=== PATIENT | female | born 1990 | race Caucasian/White ===

== ENCOUNTER 2021-07-29 04:58 | Emergency (ER) | payer BC, SELFPAY ==
[2021-07-29] VITALS (8 sets, daily range): BP systolic 119–145; BP diastolic 63–86; PULSE 67–96; RESP 16; TEMP 36.8–37.2; O2SAT 90–99; BMI 26.3; BMI 25.3
--- NOTE | 2021-07-29 05:03 | CT_ITS ---
PROCEDURE INFORMATION: Exam: CT Maxillofacial Without Contrast, Sinus Exam date and time: 07/29/2021 5:27 AM Age: 30 years old Clinical indication: Other: Congestion; Additional info: Sinus pop TECHNIQUE: Imaging protocol: CT Maxillofacial without contrast. Focus on the sinuses. Radiation optimization: All CT scans at this facility use at least one of these dose optimization techniques: automated exposure control; mA and/or kV adjustment per patient size (includes targeted exams where dose is matched to clinical indication); or iterative reconstruction. COMPARISON: No relevant prior studies available. FINDINGS: Frontal sinuses: Normal. No air-fluid levels. Ethmoid air cells: This is also seen in the sphenoid and ethmoid sinuses. Sphenoid sinuses: Normal. No air-fluid levels. Maxillary sinuses: Bilateral right greater than left mucoperiosteal thickening of the maxillary sinuses is noted. Nasal cavity/Septum: Unremarkable. Orbital cavities: Orbits are normal. Globes are unremarkable. Bones/joints: Unremarkable. Soft tissues: Unremarkable. IMPRESSION: Pansinusitis. No air fluid levels noted however.
--- NOTE | 2021-07-29 05:03 | XR_ITS ---
PROCEDURE INFORMATION: Exam: XR Chest Exam date and time: 07/29/2021 5:18 AM Age: 30 years old Clinical indication: Other: Congestion TECHNIQUE: Imaging protocol: XR of the chest. Views: 2 views. COMPARISON: No relevant prior studies available. FINDINGS: Lungs: Unremarkable. No consolidation. Pleural spaces: Unremarkable. No pleural effusion. No pneumothorax. Heart/Mediastinum: Unremarkable. No cardiomegaly. Bones/joints: Unremarkable. IMPRESSION: No acute findings.
--- NOTE | 2021-07-29 05:12 | ECG_ITS ---
APPROVED REPORT Exam: Resting ECG HR:76 bpm ECG Measurements Heart Rate 76 AXES IN 134 P 72 QRSd 93 QRS 97 QT 359 T 78 QTc 389 Conclusion SINUS RHYTHM BORDERLINE RIGHT AXIS DEVIATION [QRS AXIS > 90] BORDERLINE ECG UNCONFIRMED REPORT Electronically signed by : Trevor Nichols MD 07/31/2021 10:33:14
[2021-07-29 05:38] LABS: Adenovirus,PCR Not Detected (NotDetected); Bordetella Pertussis Not Detected (NotDetected); Chlamydophila Pneumoniae, PCR Not Detected (NotDetected); Coronavirus 19, PCR Not Detected (NotDetected); Coronavirus 229E Not Detected (NotDetected); Coronavirus NL63 Not Detected (NotDetected); Coronavirus OC43 Not Detected (NotDetected); Coronovirus HKU1,PCR Not Detected (NotDetected); Human Metapneumovirus Not Detected (NotDetected); Influenza A, PCR Not Detected (NotDetected); Influenza AH1, 2009 Not Detected (NotDetected); Influenza AH1, PCR Not Detected (NotDetected); Influenza AH3,PCR Not Detected (NotDetected); Influenza B, PCR Not Detected (NotDetected); Microscopic, Urine URINE MICROSCOPIC (MICROSCOPIC); Mycoplasma Pneumoniae, PCR Not Detected (NotDetected); Parainfluenza 1, PCR Not Detected (NotDetected); Parainfluenza 2, PCR Not Detected (NotDetected); Parainfluenza 3, PCR Not Detected (NotDetected); Parainfluenza 4, PCR Not Detected (NotDetected); Respiratory Syncytial Virus Not Detected (NotDetected); Rhinovirus/Enterovirus Not Detected (NotDetected)
--- NOTE | 2021-07-29 05:41 | PC.NURSE ---
PO CHALLENGE INITIATED.
[2021-07-29 05:44] LABS: Appearance,Urine CLEAR (Clear); Bilirubin,Urine Negative (Negative); Blood, Urine 2+ (Negative); Color,Urine YELLOW (Yellow); Glucose,Urine (UA) Negative (Negative); Ketones,Urine Negative (Negative); Leukocyte Esterase,Urine Negative (Negative); Nitrate,Urine Negative (Negative); Protein,Urine Negative (Negative); Specific Gravity, Urine 1.015 (1.005-1.030)
[2021-07-29 05:54] LABS: Urine Pregnancy, HCG Qual. Negative (Negative)
[2021-07-29 06:00] LABS: Amphetamine/Metha Screen,Urine Negative ng/ml (<1000)
[2021-07-29 06:01] LABS: Barbiturates Screen,Urine Negative ng/ml (<200)
[2021-07-29 06:02] LABS: Benzodiazepines Screen,Urine Negative ng/ml (<200); Cannabinoid Screen,Urine Negative ng/ml (<50)
[2021-07-29 06:03] LABS: Cocaine Screen,Urine Negative ng/ml (<300)
[2021-07-29 06:04] LABS: Methadone Screen,Urine Negative ng/ml (<300); Opiate Screen,Urine Positive ng/ml (<300)
[2021-07-29 06:05] LABS: Phencyclidine Screen,Urine Negative ng/ml (<25)
[2021-07-29 06:06] LABS: Strep Scrn Group A (Rapid) Negative (Negative)
[2021-07-29 06:13] LABS: Bacteria,Urine 4+ /lpf; WBC,Urine Occasional #/hpf (0-3)
[2021-07-29 06:34] LABS: Basophils # 0.1 K/mm3 (0-0.2); Basophils % 0.9 % (0.1-2.0); Eosinophils % 0.4 % (0.1-12.0); Hematocrit 36.9 % (37.0-47.0); Hemoglobin 12.6 g/dL (12.2-16.2); Lymphocytes # 0.8 K/mm3 (0.7-4.5); Lymphocytes % 8.9 % (10-50); Mean Corpuscular HGB Conc 34.1 g/dL (31.8-35.4); Mean Corpuscular Hemoglobin 31.7 pg (27.0-31.2); Mean Corpuscular Volume 92.9 fl (81-99); Mean Platelet Volume 8.1 fl (7.4-10.4); Monocytes # 0.4 K/mm3 (0.1-1.0); Monocytes % 4.5 % (1.7-9.3); Neutrophils # 7.9 K/mm3 (1.8-7.8); Neutrophils % 85.3 % (37.0-80.0); Platelet Count 263 K/mm3 (142-424); Red Blood Count 3.97 M/mm3 (4.20-5.40); Red Cell Distribution Width 12.7 % (11.5-17.5); White Blood Count 9.2 K/mm3 (4.8-10.8)
[2021-07-29 06:36] LABS: MANUAL DIFFERENTIAL MANUAL DIFFERENTIAL (MANUAL DIFF)
[2021-07-29 06:39] LABS: Alanine Aminotransferase 15 U/L (12-78); Albumin/Globulin Ratio 1.3 (1.1-1.8); Alkaline Phosphatase 69 U/L (38-126); Anion Gap 10.7 mEq/L (5-15); Aspartate Amino Transferase 26 U/L (14-36); Blood Urea Nitrogen 6 mg/dl (7-17); Calcium 8.9 mg/dl (8.4-10.2); Carbon Dioxide 31 mmol/L (22.0-30.0); Chloride 99 mmol/L (98-107); Creatinine Clearance Estimated 187 mL/min (50-200); Estimated Glomerular Filt Rate 143 ml/min (>60); GFR (African American) 173 ML/MIN (>60); Glucose 129 mg/dl (74-100); Potassium 3.7 mmoL/L (3.5-5.1); Sodium 137 mmol/L (136-145)
[2021-07-29 06:44] LABS: Bilirubin,Total < 0.1 mg/dl (0.2-1.3); C-Reactive Protein 38.3 mg/L (0-4)
--- NOTE | 2021-07-29 06:51 | INFXCTL.NOTE ---
Pt updated on POC. No new needs.
--- NOTE | 2021-07-29 06:51 | PC.NURSE ---
Pt updated on POC. No new needs.
[2021-07-29 06:58] LABS: Procalcitonin 0.107 ng/mL (0.0-2.0)
[2021-07-29 06:59] LABS: Erythrocyte Sedimentation Rate 58 mm/hr (0-20)
--- NOTE | 2021-07-29 07:00 | HMH.EDURI ---
ED Disposition Clinical Impression: Sinusitis Qualifiers: Sinusitis location: pansinusitis Chronicity: acute Recurrence: not specified as recurrent Qualified Code(s): J01.40 - Acute pansinusitis, unspecified Disposition: Home, Self-Care Condition on Discharge: Good Instructions: DI for Sinusitis Additional Instructions: use meds and see pcp for follow up Prescriptions: Cefdinir [Omnicef 300mg Capsule] 300 mg PO BID #14 cap Cefdinir [Omnicef 300mg Capsule] 300 mg PO BID #14 cap Transmission Status: Pending to [id number] predniSONE [Prednisone 20mg Tab] 20 mg PO BID #10 tab predniSONE [Prednisone 20mg Tab] 20 mg PO BID #10 tab Transmission Status: Pending to [id number] Referrals: Olivia Thompson MD [Primary Care Provider] - - Critical Care Critical Care Time: No Attestation: On 07/29/21, the high probability of a clinically significant, sudden or life threatening deterioration of the following system(s) required my full and direct attention, intervention and personal management. The time I documented below is in addition to time spent performing reported procedures but includes the following listed in this critical care notation. Medical Decision Making - Medical Records Medical records reviewed: Yes: I reviewed the patient's medical records. - Carlos Inquiry Pt receiving controlled substance: No Vital Signs: 07/29/21 04:53 07/29/21 05:01 07/29/21 06:00 Temperature 99.0 F Temperature Source Oral Pulse Rate 91 H 70 Pulse Rate [Left Radial] 87 Respiratory Rate 16 Blood Pressure 145/86 H 126/74 Blood Pressure [Right Arm] 145/63 H Blood Pressure Mean [Right Arm] 90 Blood Pressure Source [Right Arm] Automatic Cuff Blood Pressure Position [Right Arm] Sitting 02 Sat by Pulse Oximetry 99 92 L 94 L Oxygen Delivery Method Room Air Room Air Room Air 07/29/21 06:24 07/29/21 06:39 Temperature 98.5 F Temperature Source Oral Pulse Rate 78 79 Pulse Rate [Left Radial] Respiratory Rate Blood Pressure 134/74 Blood Pressure [Right Arm] Blood Pressure Mean [Right Arm] Blood Pressure Source [Right Arm] Blood Pressure Position [Right Arm] 02 Sat by Pulse Oximetry 90 L Oxygen Delivery Method Room Air - Lab Data Lab results reviewed: Yes: I reviewed the patient's lab results. Lab Results 07/29/21 05:02: Urine Color Yellow, Urine Appearance Clear, Urine pH 7.0, Ur Specific Baldwin 1.015, Urine Protein Negative, Urine Glucose (UA) Negative, Urine Ketones Negative, Urine Blood 2+, Urine Nitrate Negative, Urine Bilirubin Negative, Urine Urobilinogen 1.0, Ur Leukocyte Esterase Negative, Urine RBC 10-20, Urine WBC Occasional, Ur Squamous Epith Cells 5-10, Urine Bacteria 4+ 07/29/21 05:02: Urine HCG, Qual Negative 07/29/21 05:02: Group A Strep Rapid Negative 07/29/21 05:02: Urine Opiates Screen Positive H, Urine Methadone Screen Negative, Ur Barbituates Screen Negative, Ur Phencyclidine Scrn Negative, Ur Amphetamines Screen Negative, U Benzodiazepines Scrn Negative, Urine Cocaine Screen Negative, U Marijuana (THC) Screen Negative 07/29/21 06:20: WBC 9.2, RBC 3.97 L, Hgb 12.6, Hct 36.9 L, MCV 92.9, MCH 31.7 H, MCHC 34.1, RDW 12.7, Plt Count 263, MPV 8.1, Neut % (Auto) 85.3 H, Lymph % (Auto) 8.9 L, [place] % (Auto) 4.5, Eos % (Auto) 0.4, Baso % (Auto) 0.9, Neut # (Auto) 7.9 H, Lymph # (Auto) 0.8, [place] # (Auto) 0.4, Eos # (Auto) 0.0, Baso # (Auto) 0.1, ESR 58 H 07/29/21 06:20: Sodium 137, Potassium 3.7, Chloride 99, Carbon Dioxide 31 H, Anion Gap 10.7, BUN 6 L, Creatinine 0.50 L, Estimated Creat Clear 187, Estimated GFR 143, Est GFR ( Amer) 173, Glucose 129 H, Calcium 8.9, Total Bilirubin < 0.1 L, AST 26, ALT 15, Alkaline Phosphatase 69, C-Reactive Protein 38.3 H, Total Protein 7.0, Albumin 4.0, Globulin 3.0, Albumin/Globulin Ratio 1.3, Procalcitonin 0.107 Result diagrams: 07/29/21 06:07/29/21 06:20 Orders (Tests/Meds): ED MEDICATIONS Generic
[2021-07-29 07:06] LABS: Eosinophils % 1 % (0-3); Lymphocytes % 11 % (10-50); Monocytes % 3 % (2-9); Neutrophils % 85 % (42-76); Total Cells Counted 100
[2021-07-29 07:07] LABS: Platelet Estimate Normal; RBC Morphology Normal
== END 2021-07-29 07:50 | disposition home or self-care (01) ==
PROVIDERS: Emergency Provider Emergency Medicine; PCP Family Medicine
DX: J01.40 Acute pansinusitis, unspecified (principal); Z72.0 Tobacco use
CPT/HCPCS: 70486; 71046; 80053; 80305; 81001; 81025; 84145; 85007; 85025; 85651; 86140; 87086; 87430; 87581; 87632; 87798; 93005; 96360; 96375; 99284; C9803; U0003; U0005

== ENCOUNTER 2022-01-04 10:35 | Emergency (ER) | payer BC, SELFPAY ==
[2022-01-04 11:50] VITALS: BP 130/91; PULSE 80; RESP 20; TEMP 37.1; O2SAT 96; BMI 28.1
--- NOTE | 2022-01-04 12:02 | EXP.UTC ---
Discharge Plan Disposition Patient Disposition: Home, Self-Care Condition: Good Prescriptions Prescriptions: New azithromycin [Zithromax] 250 mg tablet 250 mg PO UD DOSE PK Qty: 6 0RF Rx Instructions: Take two (2) tablets today, then one (1) tablet days #2 thru #5 methylprednisolone 4 mg Tablets,Dose Pack 4 mg PO DIRECTED Qty: 21 0RF ywrqtiebjdxklwg-jmhpqgztx-SU [Bromfed DM] 2-30-10 mg/5 mL Syrup 5 ml PO Q6H PRN (Reason: Cough) Qty: 240 0RF No Action mefenamic acid 250 mg capsule 250 mg PO Q6H amitriptyline 10 MG tablet 1 tab PO BID Label Comments: TAKE 1 TABLET AT BEDTIME ORALLY ONCE A DAY 90 DAY(S) Referrals Follow up/Referrals: Olivia Thompson MD [Primary Care Provider] - See instructions Activity Restrictions/Add. Instructions Additional Instructions/Restrictions: Drink plenty of fluids. Take tylenol or ibuprofen for pain or fever. Take the medications as directed. Follow up with your regular doctor. GO TO THE ER FOR ANY WORSENING SYMPTOMS Clinical Impressions Clinical Impression: Acute bronchitis Instructions Patient Instructions: DI for Acute Bronchitis Discharge ED Provider: [facility] General Stated complaint: Cough,Headache Time Seen by Provider: 01/04/22 12:02 History of Present Illness Provider Complaint: She states that for the past 2 days she has had cough, chest congestion, scratchy sore throat and malaise. Related Data Home Medications Medication Instructions Recorded Confirmed amitriptyline 10 mg tablet 1 tab PO BID MIGRAINES 07/29/21 12/18/21 mefenamic acid 250 mg capsule 250 mg PO Q6H 12/18/21 12/18/21 Previous Rx's Medication Instructions Recorded azithromycin 250 mg tablet 250 mg PO UD DOSE PK #6 tabs 01/04/22 (Zithromax) mejywgcbvjoafki-dqaulyqvpzjeeid-EV 5 ml PO Q6H PRN Cough #240 mL 01/04/22 2 mg-30 mg-10 mg/5 mL oral syrup (Bromfed DM) methylprednisolone 4 mg tablets in 4 mg PO DIRECTED #21 tabs 01/04/22 a dose pack Allergies Allergy/AdvReac Type Severity Reaction Status Date / Time No Known Allergies Allergy Verified 12/18/21 10:51 [facility] Medical History Migraine Surgical History History of tubal ligation S/P dilation and curettage Social History Smoking Status: Current every day smoker tobacco type: cigarettes packs per day: 1 alcohol intake: never current occupational status: other Travel in the last 8 weeks: None ROS Obtained: Yes All systems reviewed & no additional complaints except as documented Constitutional Constitutional: Reports chills and Denies fever(s) Eyes Eyes: Denies eye discharge ENT Ears, Nose, Mouth, and Throat: Reports as per HPI Cardiovascular Cardiovascular: Denies chest pain Respiratory Respiratory: Denies as per HPI, Reports chest congestion, Reports cough, Reports stridor and Reports wheezing Gastrointestinal Gastrointestingal: Reports nausea; Denies abdominal pain, constipation, cramping, diarrhea or vomiting Musculoskeletal Musculoskeletal: Denies arthralgias Integumentary/Breasts Skin/Breast: Denies rash Neurologic Neurologic: Denies paresthesias Allergic/Immunologic Allergic/Immunologic: Reports wheezing Physical Exam General General appearance: alert and in no apparent distress Head Head exam: atraumatic, normocephalic and normal inspection Eye Eye exam: Present normal appearance, PERRL and EOMI ENT ENT exam: Present normal exam, normal oropharynx, mucous membranes moist, TM's normal bilaterally and normal external ear exam Neck Neck exam: Present normal inspection, full ROM and trachea midline; Absent meningismus or lymphadenopathy Chest Chest inspection: Present normal inspection and symmetric chest wall rise; Absent tenderness Respiratory Respiratory exam:
[2022-01-04 12:21] VITALS: BP 130/91; PULSE 80; RESP 20; TEMP 37.1; O2SAT 96
== END 2022-01-04 12:24 | disposition home or self-care (01) ==
PROVIDERS: Emergency Provider Nurse Practitioner Family; PCP Family Medicine
DX: J20.9 Acute bronchitis, unspecified (principal)
CPT/HCPCS: 99212; G0463

== ENCOUNTER → 2022-04-05 15:42 | Outpatient (CLI) | payer BC, SELFPAY ==
--- NOTE | 2022-04-05 15:47 | XR_ITS ---
FINAL REPORT CLINICAL HISTORY: KNEE PAIN after stretching Tuesday night. tubal ligation. shielded. FINDINGS: 3 views of the right knee were obtained. There is no acute fracture or dislocation. The joint spaces are intact. There is no soft tissue abnormality. IMPRESSION: No acute process. Reviewed, Interpreted and Dictated by Coy Louise III, MD Transcribed by Janes Hernandez Authenticated and . [facility]
== END ==
PROVIDERS: PCP Nurse Practitioner Family; Visit Provider Nurse Practitioner Family
DX: M25.561 Pain in right knee (principal)
CPT/HCPCS: 73562

== ENCOUNTER → 2022-05-20 10:27 | Outpatient (CLI) | payer BC, SELFPAY ==
--- NOTE | 2022-05-20 10:30 | MR_ITS ---
FINAL REPORT CLINICAL HISTORY: .LOW BACK PAIN WITH RIGHT SIDED LEG PAIN, NUMBNESS AND TINGLING. NO INJURY OR TRAUMA COMPARISON: none FINDINGS: Multiplanar MR imaging of the lumbar spine was performed without contrast. On the sagittal T2-weighted images, disc degeneration is seen at L4-5 and L5-S1. There is mild retrolisthesis of L4 on L5 and L5 on S1. There is no evidence of fracture. No bony mass is identified. The conus has an unremarkable appearance. T12-L1: No significant canal stenosis or neural foraminal narrowing. L1-2: There is no significant canal stenosis or neural foraminal narrowing. L2-3: There is no significant canal stenosis or neural foraminal narrowing. L3-4: An annular bulge is present. Mild bilateral neural foraminal narrowing. L4-5: An annular bulge is present. Left paracentral annular tear and small disc protrusion. Moderate bilateral neural foraminal narrowing. Mild central canal stenosis with AP diameter of the thecal sac of 8 mm. L5-S1: An annular bulge is present. Right paracentral disc protrusion. Right S1 nerve root impingement. Severe right and moderate left neural foraminal narrowing. IMPRESSION: Left paracentral annular tear and small disc protrusion at L4-5. Other levels of degenerative disc disease and spondylosis as described. Reviewed, Interpreted and Dictated by Coy Louise III, MD Transcribed by Nidia Hinson Authenticated and [facility]
== END ==
PROVIDERS: PCP Nurse Practitioner Family; Visit Provider Nurse Practitioner Family
DX: M53.87 Other specified dorsopathies, lumbosacral region (principal)
CPT/HCPCS: 72148; 76376

== ENCOUNTER 2023-01-06 10:42 | Emergency (ER) | payer BC, SELFPAY ==
[2023-01-06 11:15] VITALS: BP 115/76; PULSE 96; RESP 19; TEMP 37.2; O2SAT 97; BMI 30.9
--- NOTE | 2023-01-06 11:43 | EXP.UTC ---
Discharge Plan Disposition Patient Disposition: Home, Self-Care Condition: Good Prescriptions Prescriptions: New prednisone [prednisone] 20 mg tablet 20 mg PO BID 5 Days Qty: 10 0RF amoxicillin-pot clavulanate 875-125 mg Tablet 1 tab PO Q12H Qty: 20 0RF guaifenesin [Mucinex] 600 mg tablet extended release 12hr 1,200 mg PO BID PRN (Reason: cough) Qty: 20 0RF No Action amitriptyline 10 MG tablet 1 tab PO BID Patient Comments: TAKE 1 TABLET AT BEDTIME ORALLY ONCE A DAY 90 DAY(S) Referrals Follow up/Referrals: Ewelina Chan APRN [Primary Care Provider] - See instructions Activity Restrictions/Add. Instructions Additional Instructions/Restrictions: Start antibiotic today. Be sure to complete entire prescription even if feeling better Monitor temp. Tylenol every 4 hours as needed and / or ibuprofen every 6 hours as needed ( As long as your primary care physician has told you that it ok to take both. For fever/aches/pains ER if no less than 101 despite Tylenol or Motrin Humidifier/vaporizer or hot steamy shower Mucinex for your cough Be sure to drink lots of water. *Start steroid today. Helps with inflammation therefore, cough and wheezing. Follow directions on the package. Reviewed side effects. Patient reports taking them before. Follow up IMMEDIATELY for new or worsening of symptoms OR no noticeable improvement over the next 48-72 hours. 911 immediately for any life threatening symptoms such as chest pain or difficulty breathing Clinical Impressions Clinical Impression: Bronchitis Sinusitis Qualifiers: Sinusitis location: unspecified location Chronicity: unspecified Qualified Code(s): J32.9 - Chronic sinusitis, unspecified Stand Alone Forms Stand Alone Forms: Work/School Release Instructions Patient Instructions: DI for Sinusitis, Sinusitis, Acute Bronchitis Discharge ED Provider: Lynsey Castellano [facility] General Stated complaint: LUNGS FEEL LIKE THEY ARE BURNING Mode of Arrival: Ambulatory Source of Information: Patient Limitations: No Limitations Time Seen by Provider: 01/06/23 11:43 Description of Symptoms (Recalled from Triage Doc. by RN): PATIENT C/O HEADACHE, CONGESTION, AND COUGH SINCE TUESDAY HEENT Symptoms (Recalled from RN notes): Yes Resp Symptoms (Recalled from RN notes): Yes Skin Symptoms (Recalled from RN notes): No MS Symptoms (Recalled from RN notes): No Functional Status (Recalled from RN notes): WNL History of Present Illness Provider Complaint: Patient states that she has been sick about a week with sinus congestion, drainage in the back of her throat, scratchy throat pressure in her ears and cough States that at times she has a burning like sensation when she coughs and at times she will cough up some mucous that is draining in the back of her throat States that today her voice was more hoarse so she came in to get checked Related Data Home Medications Medication Instructions Recorded Confirmed amitriptyline 10 mg tablet 1 tab PO BID MIGRAINES 07/29/21 01/06/23 Previous Rx's Medication Instructions Recorded amoxicillin 875 mg-potassium 1 tab PO Q12H #20 tabs 01/06/23 clavulanate 125 mg tablet guaifenesin 600 mg tablet, 1,200 mg PO BID PRN cough #20 tabs 01/06/23 extended release 12 hr (Mucinex) prednisone 20 mg tablet 20 mg PO BID 5 days #10 tabs 01/06/23 Allergies Allergy/AdvReac Type Severity Reaction Status Date / Time No Known Allergies Allergy Verified 12/18/21 10:51 Worker's Comp Is this a Worker's Comp case?: No [facility] Disclaimer: The information contained in this section may have been updated after the patient was seen, as this information can be updated by other users. Medical History Migraine Surgical History History of tubal ligation S/P dilation and curettage
[2023-01-06 11:54] VITALS: BP 115/76; PULSE 96; RESP 19; TEMP 37.2; O2SAT 97
== END 2023-01-06 12:00 | disposition home or self-care (01) ==
PROVIDERS: Emergency Provider Nurse Practitioner; PCP Nurse Practitioner Family
DX: J20.9 Acute bronchitis, unspecified (principal); J01.90 Acute sinusitis, unspecified; F17.210 Nicotine dependence, cigarettes, uncomplicated
CPT/HCPCS: 99212; 99214; G0463

== ENCOUNTER 2023-05-16 07:19 | Outpatient (CLI) | payer BC, SELFPAY ==
--- NOTE | 2023-05-16 07:39 | MR_ITS ---
FINAL REPORT CLINICAL HISTORY: SCIATICA, LUMBAR NERVE ROOT IMPINGEMENT, HX SURGERY 19ml prohance COMPARISON: 05/20/2022 FINDINGS: Multiplanar MR imaging of the lumbar spine was performed without and with contrast. On the sagittal T2-weighted images, disc degeneration is seen at L4-5 and L5-S1. There are moderate endplate changes at L5-S1. The vertebral alignment is normal. There is no evidence of fracture. The conus is seen at approximately the L1 level and has an unremarkable appearance. L1-2: No significant canal stenosis or neuroforaminal narrowing is seen. L2-3: No significant canal stenosis or neuroforaminal narrowing is seen. L3-4: An annular bulge is present. There is mild bilateral neuroforaminal narrowing. L4-5: An annular bulge is present. There is a left paracentral annular tear. There is moderate bilateral neuroforaminal narrowing. L5-S1: There are interval postoperative changes on the right with improvement of a right foraminal disc protrusion. A small amount of contrast enhancement is seen in the soft tissues adjacent to the thecal sac on the right consistent with postoperative fibrosis. There is moderate bilateral neuroforaminal narrowing. IMPRESSION: Interval postoperative changes with improvement in right foraminal disc protrusion. There is a small amount of contrast enhancement in the soft tissues adjacent to the thecal sac on the right consistent with postoperative fibrosis. Left paracentral annular tear. Reviewed, Interpreted and Dictated by Coy Louise III, MD Transcribed by Luisa Gregory Authenticated and [facility]
[2023-05-16] MEDS: SODIUM CHLORIDE 0.9% 10ML SYR (RAD ONLY) 10 ML IV (08:53)
[2023-05-16] MEDS: GADOTERIDOL INJ 17ML SYRINGE 19 ML IV (08:53)
== END 2023-05-16 23:59 ==
LOC: RAD 07:20
PROVIDERS: PCP Nurse Practitioner Family; Visit Provider Nurse Practitioner Family
DX: M53.87 Other specified dorsopathies, lumbosacral region (principal); M54.16 Radiculopathy, lumbar region; Z98.890 Other specified postprocedural states
CPT/HCPCS: 72158; 76376; A9576

== ENCOUNTER 2024-09-26 12:41 | Outpatient (CLI) | payer BC, SELFPAY ==
--- NOTE | 2024-09-26 12:43 | MR_ITS ---
FINAL REPORT TECHNIQUE: Multiplanar MR, without and with gadolinium enhancement CLINICAL HISTORY: BACK PAIN. HISTORY SACRAL SURGERY 2021. LOW BACK PAIN COMPARISON: 05/16/2023 FINDINGS: Sagittal images show normal vertebral height. Alignment is normal. Marrow signal pattern is unremarkable. There is no evidence of abnormal contrast-enhancement. T12-L1: Unremarkable L1-2: Unremarkable L2-3: Unremarkable L3-4: Mild annular disc bulge with borderline central canal stenosis. Mild right neuroforaminal narrowing. L4-5: Moderate annular disc bulge. Annular tear in the midline. Mild central canal stenosis and moderate neuroforaminal narrowing. L5-S1: No focal disc protrusion. Mild facet arthropathy. Mild neuroforaminal narrowing. IMPRESSION: Stable degenerative changes, most pronounced at L4-5. Reviewed, Interpreted and Dictated by Freya Mclean MD Transcribed by Sophia Santoro Authenticated and [facility]
--- OUTSIDE RECORDS SUMMARY | 2024-09-26 12:44 | XMS_ITS | Clinical Summary ---
Author Organization Healthcare Address [address] [place] [address] Care Team Providers Care Screen Printing Cloth Spreader Name Role Phone Alison Tovar MD Primary Care Provider [phone] Rimma Molina PA Unavailable [phone] Allergies No known active allergies Medications amitriptyline (Elavil) 10 MG tablet 12/24/2019 Active Mefenamic Acid 250 MG capsule 12/19/2020 Acti ve amitriptyline (Elavil) 10 MG tabletIndication s:Hemiplegic migraine without status migrainosus, not intractable TAKE 1 TABLET BY MOUTH EVERY DAY AT NIGHT 90 tablet 3 08/12/2022 Active Active Problems Problem Noted Date Diagnosed Date 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 Hemiplegic migraine without status migrainosus, not intractable 01/19/2021 Immunizations Immunization Administration Dates Next Due Influenza, injectable, quadrivalent, preservativ e free 12/14/2019,12/26/2012 Influenza, seasonal, injectable, preservative fr ee 12/24/2013 MMR 11/14/2012 Tdap 11/14/2012 Family History Medical History Relation Name Comments ADD / ADHD Father Nitin Rod Brain Tumor Father Nitin Rod Depression Father Nitin Rod Anemia Mother Conversions - Other Mother Hypoglyc emia Relation Name Status Comments Father Nitin Rod Mother Social History Tobacco Use Types Packs/Day Years Used Date Smoking Tobacco: Former Cigarettes 0.3 20 2 002 - 2021 Smokeless Tobacco: Never Tobacco Cessation:Counseling Given: Not Answered Comments:I am aware of the dangers and risks. I am comfortable. Alcohol Use Standard Drinks/Week Comments No 0 (1 standard drink = 0.6 oz pure alcohol) Alcoholic Drinks/day: Never Drank Alcohol Comments Unknown Sex and Gender Information Value Date Recorded Sex Assigned at Female 01/12/2021 8:28 AM EST Legal Sex Female 6:25 PM EDT Gender Identity Female 01/12/2021 8:28 AM EST Sexual Orientation Straight 01/12/2021 8: 28 AM EST Last Filed Vital Signs Vital Sign Reading Time Taken Comments Blood Pressure 124/80 04/09/2024 11:48 AM EST Pulse 86 04/09/2024 11:48 AM EST Temperature - - Respiratory Rate 18 03/04/2022 10:31 AM EST Oxygen Saturation 96% 04/09/2024 11:48 AM EST Inhaled Oxygen Concentration - - Weight 78.1 kg (172 lb 2.9 oz) 04/09/2024 11:48 AM EST Height 167.6 cm (5' 6 ) 04/09/2024 11:48 AM EST Body Mass Index 27.79 04/09/2024 11:48 AM EST Plan of Treatment Health Maintenance Due Date Last Done Comments [facility]-Depression Screening 1990 [facility]-Infant/Child/Adol SDOH Screenings 1990 HPV Vaccines (1 - 3-dose series) 10/20/2003 [facility]- SDOH Screenings 2006 [facility]-Adult SDOH Screenings 2006 [facility]-Hepatitis B Vaccines (1 of 3 - 19+ 3-dose series) 10/20/2007 [facility]-Varicella Vaccines (1 of 2 - 13+ 2-dose series) 12/12/2012 [facility]-Pap Smear 06/20/2015 06/19/2012 [facility]-Cervical Cancer Screening 2018 [facility]-HPV/Cotest 2018 06/19/2012 [facility]-DTaP,Tdap,and Td Vaccines (2 - Td or Tdap) 11/14/2022 11/14/2012 [id number] Vaccine ( - season) 2023 [facility]-Influenza Vaccine (#1) 11/05/202412/13, 01/02/2018, 12/24/2013, Additional history exists [facility]-Zoster Vaccines (1 of 2) 2038 [facility]-HIV Screening Completed 12/12/2019, 08/15/2013 [facility]-Hepatitis C Screening Completed 12/12/2019 [facility]-Obesity Intervention Completed 04/09/2024, 02/05 [facility]-HIB Vaccines Aged Out No longer e ligible based on patient's age to complete this topic [facility]-Hepatitis A Vaccines Aged Out No longer eligible based on patient's age to complete this topic [facility]-IPV Vaccines Aged Out No longer e ligible based on patient's age to complete this topic [facility]-Pneumococcal Vaccine: Pediatrics (0 to 5 Years) and At-Risk Patients (6 to 49 Years) Aged Out No longer eligible based on patient's age to complete this topic [facility]-Rotavirus Vaccines Aged Out No lo nger eligible based on patient's age to complete this topic Procedures Procedure Name Priority Date/Time Associated Diagnosis Comments HEPATITIS C ANTIBODY - ED W/REFLEX TO HCV QUANT PCR Routine 12/12/2019 4:08 PM EDT HIV 1/2 ANTIBODY/ANTIGEN SCREEN WITH REFLEX TO HIV I/II DIFFERENTIATION Routine 12/12/2019 4:08 PM EDT CYTO DATA CONVERSION Routine 06/19/2012 12:00 AM EDT from Last 3 Months or Most Recently Relevant to Health Maintenance Results * HIV 1 & 2 Antibody/Antigen Screen (12/12/2019 4:08 PM EDT) HIV 1 Result NONREACTIVE Screening for HIV 1 and 2 antibodies is NONREACTIVE. No confirmatory testing is required. SUNQUEST 12/12/2019 4:08 PM EDT 12/12/2019 4:28 PM EDT Dhruv Silveira LAB BLOOD ORDERABLES Final Resul t SUNQUEST * [place] Hepatitis C Antibody (12/12/2019 4:08 PM EDT) [place] Hepatitis C Ab NEGATIVE Reference Range: Negative SUNQUEST 12/12/2019 4:08 PM EDT 12/12/2019 4:29 PM EDT Coy Parekh MD LAB BLOOD ORDERABLES Lesli acosta Result DALI * (ABNORMAL) Cytology (06/19/2012 12:00 AM EDT) 06/19/2012 06/20/2012 2:0 7 PM EDT Narrative SUNQUEST - 06/22/2012 7:09 PM EDT [facility] MR #: [id number] [facility] [place], [place] [address] 1990 (Age: 21) FW Collect Date: 06/19/2012 00:00 Receipt Date: 06/20/2012 14:07 Page 1 DEPARTMENT OF PATHOLOGY AND LABORATORY MEDICINE CYTOPATHOLOGY REPORT Email: [email or web address] ATTENDING MD/Practitioner: Olivia Rose Service: OBE Location: [facility] Reported: 06/22/2012 19:09 Collected: 06/19/2012 00:00 INTERPRETATION A. THIN PREP (CERVICAL/VAGINAL): ATYPICAL SQUAMOUS CELLS - UNDETERMINED SIGNIFICANCE. SHIFT IN DORIS SUGGESTIVE OF BACTERIAL VAGINOSIS. SATISFACTORY FOR EVALUATION; ENDOCERVICAL/ TRANSFORMATION ZONE COMPONENT PRESENT. Slide scanned and imaged by [employer] ThinPrep Imaging System with manual review of all selected martínez. Please correlate with HPV results (see microbiology report, or call [phone]) and refer to clinical guidelines for additional management (www.[email or web address].org). Electronically Signed Out GOLDEN Santos (ASCP) Sarah Mark M.D. Cervical cytology is a screening test primarily for squamous cancers and precursors and has associated false negative and positive results. New technologies such as liquid based sampling may decrease but will not eliminate all false negative results. Regular screening and follow-up of unexplained clinical signs and symptoms are recommended to minimize false negative results. Please see the ASCCP website (www.asccp.org) for followup recommendations. If HPV testing was requested, correlation with the results is suggested (please call Microbiology at [phone] for results). CLINICAL INFORMATION: Menstrual History: : First Trimester Date of Last Menstrual Period: 01/19/2013 Other Clinical Conditions: If ASCUS and > 24 years of age, HPV/DNA testing requested. SPECIMEN DESCRIPTION: A: THIN PREP (CERVICAL/VAGINAL) THIN PREP PROCESS CELLULAR ENHANCEMENT ICD: V76.2 CERVIX, SPECIAL SCREENING FOR MALIGNANT NEOPLASM 795.01 (ASC-US) PAPANICOLAOU SMEAR OF CERVIX W/ATYPICAL SQUAMOUS CELLS OF UNDETERMINED SIGNIFICANCE 041.89 OTHER SPECIFIED BACTERIAL INFECTIONS F: A; RT IMAGE 59838, 63836 C\V (PO) SNOMED CODES: A; [id number] M- [id number] In cases where a pathologist has signed out the report, the service has been rendered in part by a resident. The signing pathologist has performed and is responsible for the reported pathologic evaluation. us Vicki Infante APRN LAB PATHOLOGY ORDERABLES F inal Result PadMatcher from Last 3 Months or Most Recently Relevant to Health Maintenance Insurance ANTH Care Teams Screen Printing Cloth Spreader Relationship Specialty Start Date End Date Alison Tovar MD [address] [place] [address] PCP - General 07/18/20 Rimma Molina PA [address] [phone] Physician Animal Tech Neurosurgery 01/19/21
--- OUTSIDE RECORDS SUMMARY | 2024-09-26 12:44 | XMS_ITS | Data Portability ---
Author Organization [facility] Address [address] [facility] [place] [address] Care Team Providers Care Radial Saw Operator Name Role Phone VERONICA HICKEY Primary Care Provider VAMSI SHANKAR Referring Provider [phone] Assessment Encounter Date Assessment Date Assessment LastModified by Organization Details LastModified Time 06/07/2022 06/07/2022 Mrs. Wright is a 31-year-old female with a sizable right L5-S1 disc herniation with impingement on the descending S1 nerve root. I think she would benefit from a minimally invasive outpatient L5-S1 discectomy. I described this procedure in detail and used a model to show her exactly what would be done during the surgery. We discussed the risks and benefits of the operation. Specific risks that we discussed included general anesthesia, infection, spinal fluid leakage and reherniation. I think that these risks are relatively low and that she will do very well from this operation. She will speak with our surgery coordinator and find a date for surgery. Not available 06/07/2022 11:21:42 07/19/2022 07/19/2022 Mrs. Wright is doing fantastic after right L5-S1 discectomy. She has been walking 3 to 4 miles. She is very pleased with the relief she has seen thus far. She will continue with physical therapy. She will follow-up with me as needed, but understands she can call at anytime with questions or concerns. Not available 07/19/2022 15:23:54 07/28/2023 07/28/2023 HPI: Jean-Pierre Wright is a 32-year-old presenting to the clinic for new onset low back pain with extension into right buttock and lower extremity. Patient is status post MIS right L5-S1 discectomy with Dr. Lagunas on 06/18/2022. Patient presents with disc containing lumbar MRI (05/16/2023) completed through [facility]. Patient reports that she had full resolution of preoperative symptoms after surgery. Patient reports she was overall doing well until February of this year, when she noted return of symptoms. Patient reports her symptoms have continued to progress. Patient reports pain below her previous incision to her low back with extension into her right buttocks. Patient reports the pain will radiate into the right posterior thigh and somewhat into right anterior thigh as well. Patient reports the pain will occasionally travel into right posterior calf, more notable when sitting for periods of time. Patient additionally reports numbness and tingling along the same distributions. Patient reports her gait has been affected due to pain. Patient has tried naproxen, without relief, and muscle relaxers, with some notable relief. Patient notes right-sided lower extremity weakness since symptom onset in 2021. Patient underwent 8 weeks of physical therapy, though reports she plateaued after few weeks and graduated as there was no lasting benefit. Patient reports receiving a steroid pack for an ear infection within the last few months, though reports this did not help her pain. Assessment: Review of imaging, no neural impingement is noted to central canal, foramen or lateral recess. Patient does not appear to have recurrence of L5-S1 disc herniation. Is unclear at this time what is causing the return of preoperative symptoms. On discussion with Dr. Lagunas, we will prescribe alpha lipoic acid 600 mg for patient to take over the next 2 weeks. Should her pain not resolve, we will consider lumbar CT myelogram, lumbar flexion/extensio n/AP/lateral x-rays, and referral to Dr. Tello for lumbar injections. Though it is unlikely and not apparent on lumbar MRI, concern for patient developing pars fracture secondary to previous discectomy. CT myelogram would not only highlight the bone structure, though would also provide a new view on the nerves to identify any impingement. Instability will be evaluated with x-rays. Patient will call in a few weeks to update us on her current stauts. If her pain is not improved, we will consider ordering the above studies. Imaging: I personally reviewed the imaging with Dr. Lagunas and discussed the below findings. Lumbar MRI (05/16/2023) completed through [facility]. No neural impingement noted to central canal, foramen or lateral recess. Plan: Alpha Lipoic Acid 600mg Will call in a few weeks to update us on her current status. [email or web address] Not available 07/28/2023 10:53:59 Plan of Treatment Reminders Order Date Submit Date Provider Last Modified By Organization Details Last Modified Time Details Appointments None record ed. Lab None record ed. Referral None record ed. Procedures None record ed. Surgeries None record ed. Imaging None record ed. Medication Orders None record ed. Patient TargetsNo targets recorded. Patient InstructionsNo instructions recorded. Reason for Referral None Reported. Results Created Date Observation Date Name Description Value Unit Range Abnormal Flag Note LastModifiedBy Organization Detail LastModifiedTime 06/10/1905/20/2022 MRI, lumba r spine , w/o contr ast No observ ation record ed. BARCODE Not Available 2022 12:06:33 07/29/19 24 05/16/2023 MRI, lumba r spine , w/wo contr ast No observ ation record ed. BARCODE Not Available 2023 11:49:45 Result Notes None recorded. Procedures Surgical History Date Name Laterality Status Provider Name and Address Organization Details Recorded Time ligation of fallopian tube completed [facility] 06/07/2022 11:03:00 Back Surgery completed [facility] 07/28/2023 09:30:26 Imaging Results None recorded. Procedure Notes None recorded. Medical Equipment None Reported. Allergies No known drug allergies Medications Name Sig Start Date Stop Date Status Note LastModified by Organization Details LastModified Time amitriptylin e 10 mg tablet Take 1 tablet every day by oral route. active Not Available Not Available No t Available Masterson 7.5 mg-325 mg tablet Take 1 tablet every 6 hours by oral route as needed. 07/27 completed Not Available Not Available Not Available Flexeril 10 mg tablet Take 1 tablet 3 times a day by oral route. 07/27 completed Not Available Not Available Not Available alpha lipoic acid 600 mg capsule Take 1 capsule every day by oral route. 2023 active Not Available Not Available Not Avai lable Vitals Date Recorded Body height Body mass index (BMI) Body weight Systolic And Diastolic Provider Name and Address Organization Details Last Updated DateTime 06/07/2022 167.64 cm 30.7 kg/m2 19736.55 g 126/82 mm[Hg] [facility] 06/07/2022 11:04:58 Date Recorded Body height Body mass index (BMI) Body weight Systolic And Diastolic Provider Name and Address Organization Details Last Updated DateTime 07/19/2022 167.64 cm 30.7 kg/m2 69229.55 g 126/82 mm[Hg] [facility] 07/19/2022 14:59:46 Date Recorded Body height Body mass index (BMI) Body weight Systolic And Diastolic Provider Name and Address Organization Details Last Updated DateTime 07/28/2023 167.64 cm 30.7 kg/m2 69718.55 g 122/80 mm[Hg] [facility] 07/28/2023 09:52:01 Social History None recorded. Functional Status None recorded. Mental Status None recorded. Family History Nothing Reported. Medical History No medical history recorded. Gynecological HistoryNo gynecological history recorded. Obstetrics History GPAL:G 0 P 0 0 0 0 Immunizations Vaccine Type Date Status Note Provider Nam e and Address Organization Details Recorded Time Influenza, split virus, quadrivalent, preservative 8 completed [facility] 06/07/2022 11:05:41 Influenza, split virus, quadrivalent, PF 0 completed [facility] 06/07/2022 11:05:41 Past Encounters Encounter ID Performer Location Encounter Start Date Encounter Closed Date Diagnosis/Indication Diagnosis SNOMED-CT Code Diagnosis ICD10 Code Diagnosis Note [id number] ANGEL LAGUNAS MD [facility] [address] [place] [address] 06/07/2022 10:18:04 06/08/2022 04:24:48 Sacral radiculopathy [id number] M54.18 [id number] ANGEL LAGUNAS MD SURGERY SCHEDULE [address] [place] [address] 06/18/2022 11:12:42 06/18/2022 11:13:39 [id number] ANGEL LAGUNAS MD [facility] [address] [place] [address] 07/19/2022 14:23:20 07/20/2022 04:14:38 Postoperative care [id number] Z48.89 [id number] JOE WRIGHT PA-C [facility] [address] [place] [address] 07/28/2023 09:04:14 07/29/2023 05:18:04 Lumbar radiculopathy [id number] M54.16 Health Concerns Section Related Observation LastModified by Organization Detai ls LastModified Time None Recorded Concern Status LastModified by Organization Details LastModified Time None Recorded Advance Directives Directive None Recorded Payers Insurance Date Sequence Insurance Name Policy Number Policy Arndt Covered Member ID Arndt Member ID Guarantor Name 07/17/2024 PAYMENT PLAN Jean-Pierre Wright 06/07/2022 1 [employer] (INDEMNITY) Jean-Pierre Michaelsbs [id number] Jean-Pierre Wright 07/25/2023 1 [employer] [id number] [place] Acuna Wright [id number] Jean-Pierre Wright Notes Date Note Type Note Provider Name and Address Organization Details Recorded Time 06/07/2022 text/html Mrs. Wright is a 31-year-old female with approximately 5-8 years of posterior right leg pain. She denies any inciting event. The pain radiates posteriorly, described as 7 out of 10. The pain is sharp, electric or shooting. The pain is intermittent and getting worse. She gets some relief from sitting or recumbency. The pain is made worse with any significant activity, especially getting in and out of a car. She describes numbness and tingling in her leg. No significant weakness. No loss of bowel or bladder control. She is doing physical therapy, and has been at it for 2 months. She has trialed Flexeril. She presents today with an MRI of the lumbar spine performed at [facility] on May 19, 2022. ANGEL LAGUNAS MD [address] [place] [address], [phone], [facility] 06/07/2022 11:22:09 07/19/2022 text/html Mrs. Wright is do ing very well after a right L5-S1 discectomy performed on June 18, 2022. She reports good relief of her radicular leg pain. ANGEL LAGUNAS MD [address] [place], [address], [facility] 07/19/2022 15:24:08 07/28/2023 text/html Jean-Pierre Wright is a 32-year-old presenting to the clinic for new onset low back pain with extension into right buttock and lower extremity. Patient is status post MIS right L5-S1 discectomy with Dr. Lagunas on 06/18/2022. Patient presents with disc containing lumbar MRI (05/16/2023) completed through [facility]. Patient reports that she had full resolution of preoperative symptoms after surgery. Patient reports she was overall doing well until February of this year, when she noted return of symptoms. Patient reports her symptoms have continued to progress. Patient reports pain below her previous incision to her low back with extension into her right buttocks. Patient reports the pain will radiate into the right posterior thigh and somewhat into right anterior thigh as well. Patient reports the pain will occasionally travel into right posterior calf, more notable when sitting for periods of time. Patient additionally reports numbness and tingling along the same distributions. Patient reports her gait has been affected due to pain. Patient has tried naproxen, without relief, and muscle relaxers, with some notable relief. Patient notes right-sided lower extremity weakness since symptom onset in 2021. Patient underwent 8 weeks of physical therapy, though reports she plateaued after few weeks and graduated as there was no lasting benefit. Patient reports receiving a steroid pack for an ear infection within the last few months, though reports this did not help her pain. Patient was seen by both Dr. Lagunas and Hosea in clinic today. JOE WRIGHT PA-C [address] [place], [address], [facility] 07/28/2023 10:54:19 OBGyn Episode No OBEpisode recorded.
[2024-09-26] MEDS: SODIUM CHLORIDE 0.9% 10ML SYR (RAD ONLY) 10 ML IV (13:35)
[2024-09-26] MEDS: GADOTERIDOL INJ 20ML SYRINGE 16 ML IV (13:35)
== END 2024-09-26 23:59 | disposition home or self-care (01) ==
LOC: RAD 12:41
PROVIDERS: PCP Nurse Practitioner Family; Visit Provider Nurse Practitioner Family
DX: M48.061 Spinal stenosis, lumbar region without neurogenic claudication; M51.369 Other intervertebral disc degeneration, lumbar region without mention of lumbar back pain or lower extremity pain; M47.817 Spondylosis without myelopathy or radiculopathy, lumbosacral region
CPT/HCPCS: 72158; A9576